=== PATIENT | male | born 1950 | race Hispanic/Latino ===

== ENCOUNTER 2021-03-22 06:40 | Day surgery (SDC) | payer OTHER ==
[2021-03-19 10:23] LABS: BASOPHILS % (AUTO) 0.6 % (0.0-5.0); EOSINOPHILS % (AUTO) 1.4 % (0.0-8.0); HEMATOCRIT 46.2 % (42-54); LYMPHOCYTES % (AUTO) 41.2 % (21.0-51.0); MEAN CORPUSCULAR HEMOGLOBIN 33.2 pg (27.0-33.0); MEAN CORPUSCULAR HGB CONC 35.3 g/dL (32.0-36.0); MEAN CORPUSCULAR VOLUME 94.1 fL (79-99); MONOCYTES % (AUTO) 8.6 % (3.0-13.0); PLATELET COUNT (AUTO) 210 K/uL (130-400); RED BLOOD CELL COUNT(AUTO) 4.91 MIL/uL (4.50-6.20); WHITE BLOOD COUNT (AUTO) 4.9 K/uL (4.8-10.8)
[2021-03-19 10:33] LABS: INR 1.02 (0.85-1.15); PROTHROMBIN TIME 11.1 SEC (9.6-11.6)
[2021-03-19 10:34] LABS: PARTIAL THROMBOPLASTIN TIME 26.5 SEC (26.3-35.5)
[2021-03-21 11:46] VITALS: BP 167/86
[~2021-03-22] VITALS: Ht 182.9 cm; Wt 95.0 kg
[2021-03-22] VITALS (18 sets, daily range): BP systolic 96–161; BP diastolic 33–92
[~2021-03-22 06:40] MED LIST: AEC81 PO; CEFAZOLIN SODIUM 1 GM VIAL IVP SCH; FAMO40TA7 PO; LISI1TAB29 PO
[2021-03-22] MEDS ORDERED: LACTATED RINGERS 1000ML 1,000 ML IV ONE (06:47)
[2021-03-22] MEDS ORDERED: OXYMETAZOLINE HCL SPRAY 15 ML BOTTLE ONE (07:02)
[2021-03-22] MEDS ORDERED: LIDOCAINE 1%-EPI 1:100,000 20 ML VIAL IJ ONE (07:03)
[2021-03-22] MEDS: CEFAZOLIN SODIUM 1 GM VIAL ONE ×2 (07:14→08:05)
[2021-03-22] MEDS ORDERED: MIDAZOLAM HCL 1 MG/ML 2ML VIAL ONE ×2 (07:25→07:44)
[2021-03-22] MEDS ORDERED: GLYCOPYRROLATE 1 MG/5 ML SYRINGE ONE (07:25)
[2021-03-22] MEDS ORDERED: FENTANYL CITRATE PF 50 MCG/1 ML 2ML VIAL ONE ×3 (07:25→08:36)
[2021-03-22] MEDS ORDERED: PROPOFOL 10 MG/ML 20ML VIAL IV ONE ×2 (07:25→09:48)
[2021-03-22] MEDS ORDERED: SUCCINYLCHOLINE CHLORIDE 20 MG/ML 10 ML VIAL ONE (07:25)
[2021-03-22] MEDS ORDERED: DEXAMETHASONE SOD PHOSPHATE 10MG/ML 1ML VIAL ONE (07:25)
[2021-03-22] MEDS ORDERED: NEOSTIGMINE 5MG/5ML SYR IV ONE (07:25)
[2021-03-22] MEDS ORDERED: ONDANSETRON 4MG INJ ONE (07:25)
[2021-03-22] MEDS ORDERED: LIDOCAINE PF 100MG/5ML (2%) SYRINGE 5ML ONE ×2 (07:25→09:49)
[2021-03-22 07:26] LABS: CREATININE 1.1 mg/dL (0.5-1.5); POTASSIUM 3.7 mmol/L (3.5-5.1)
[2021-03-22] MEDS ORDERED: ROCURONIUM 10MG/1ML SYR 10 MG/ML ML ONE (07:26)
[2021-03-22] MEDS ORDERED: MEPERIDINE-PF 25 MG/ML SYG ONE (07:28)
[2021-03-22] MEDS ORDERED: DEXMEDETOMIDINE HCL 200 MCG/2 ML VIAL IV ONE (07:41)
[2021-03-22] MEDS ORDERED: ESMOLOL HCL 10 MG/ML 10 ML VIAL ONE (08:15)
[2021-03-22] MEDS ORDERED: SUGAMMADEX SODIUM 200 MG/2 ML VIAL IV ONE (08:46)
[2021-03-22] MEDS ORDERED: RACEPINEPHRINE HCL 2.25% 0.5 ML NEB SOLN ONE (10:21)
[2021-03-22] MEDS ORDERED: EPHEDRINE SULFATE 50 MG/ML AMPULE ONE (10:26)
[2021-03-22] MEDS ORDERED: NALOXONE HCL 0.4 MG/1 ML ML ONE (10:35)
[2021-03-22] MEDS ORDERED: DEXAMETHASONE SOD PHOSPHATE 4 MG/ML 5ML VIAL ONE (10:41)
[2021-03-22] MEDS ORDERED: ACETAMINOPHEN 500 MG TABLET ONE (11:39)
[2021-03-22] MEDS ORDERED: ACETAMINOPHEN 500 MG TABLET PO SCH (11:45)
== END 2021-03-22 12:15 | disposition home or self-care (01) ==
LOC: DAH 06:40
PROVIDERS: ATTEND Otolaryngology
DX: C32.0 Malignant neoplasm of glottis (principal); Z20.822 Contact with and (suspected) exposure to COVID-19; I10 Essential (primary) hypertension; I25.10 Atherosclerotic heart disease of native coronary artery without angina pectoris; E66.3 Overweight; E78.00 Pure hypercholesterolemia, unspecified; I45.10 Unspecified right bundle-branch block; K21.9 Gastro-esophageal reflux disease without esophagitis; Z79.01 Long term (current) use of anticoagulants; Z95.1 Presence of aortocoronary bypass graft; Z87.891 Personal history of nicotine dependence; Z98.890 Other specified postprocedural states; Z90.49 Acquired absence of other specified parts of digestive tract; Z85.21 Personal history of malignant neoplasm of larynx; Z68.28 Body mass index [BMI] 28.0-28.9, adult; Z79.899 Other long term (current) drug therapy
CPT/HCPCS: 31540; 36415 ×2; 71045; 80048; 85025; 85610; 85730; 88305; 88331; 93005; 94640; A4215; A4221; A4222; A4223; A4663; A6260; C9803; J0330; J0690; J1100 ×2; J2001 ×2; J2175; J2250 ×2; J2310; J2405; J2704 ×2; J2710; J3010 ×3; J3490 ×4; J7120; U0003